=== PATIENT | male | born 1960 | race Caucasian/White ===

== ENCOUNTER 2018-08-04 17:37 | Emergency (ER) | payer MEDICAID ==
[2018-08-04] MEDS ORDERED: Ondansetron 4 MG/2 ML SDV IV ONE (17:44)
[2018-08-04] MEDS ORDERED: MVI, Adult with Vitamin K 10 ML, Thiamine 100 MG, Folic Acid 1 MG in Lactated Ringers 1... IV ONE ×4 (17:44)
[2018-08-04] MEDS ORDERED: LORazepam 2 MG/ML Syringe IVPUSH ONE (17:44)
[2018-08-04] MEDS ORDERED: Pantoprazole 40 MG Vial IVPUSH ONE (17:44)
[2018-08-04] MEDS ORDERED: Pantoprazole 40 MG in Sodium Chloride 0.9% 100 ML IV SCH (17:45)
[2018-08-04] MEDS ORDERED: Sodium Chloride 0.9% 10 ML Syringe FLUSH PRN (17:45)
[2018-08-04] MEDS ORDERED: Octreotide 100 MCG/ML SDV IVPUSH ONE (17:45)
[2018-08-04] MEDS ORDERED: Octreotide 500 MCG in Sodium Chloride 0.9% 250 ML IV SCH (17:45)
[2018-08-04 17:46] VITALS: BP 106/80
[2018-08-04 18:13] LABS: ANION GAP 17.4; CHLORIDE,CL 106 mmol/L (101-111); SODIUM,NA 135 mmol/L (135-145)
[2018-08-04] MEDS: Sodium Chloride 0.9% 10 ML Syringe FLUSH PRN ×3 (18:13→18:30)
[2018-08-04] MEDS ORDERED: Lactated Ringers 1,000 ML IV ONE (18:43)
--- NOTE | 2018-08-04 18:44 | EDM.PDOC ---
Scribed by Salud Boswell 08/04/18 [id number] for Glne Casillas MD ED HPI GENERAL MEDICAL PROBLEM - General Chief Complaint: Abdominal Pain Stated Complaint: Abdominal pain Time Seen by Provider: 08/04/18 17:37 Source of Information: Reports: Patient, RN, RN Notes Reviewed History Limitations: Reports: No Limitations - History of Present Illness INITIAL COMMENTS - FREE TEXT/NARRATIVE: Patient presents to ER with complaint of upper and lower GI bleed. He relapsed to drinking half a gallon of vodka a day after 7 months of sobriety. He states he has been drinking for 2.5 days. Last drank earlier today. He states that he had a dark bloody smelling bowel movement this morning and began vomiting blood one hour ago. He states he feels lightheaded. He denies chest pain. He has gastric pain that he rated as 8/10. Onset: Today Duration: Getting Worse Location: Reports: Abdomen Quality: Reports: Ache Severity: Severe Abdomen Pain Score (Numeric/FACES): 8 - Related Data Allergies Allergy/AdvReac Type Severity Reaction Status Date / Time bee pollen Allergy Anaphylactic Verified 08/04/18 17:46 Shock Home Meds: Home Meds Atenolol 25 mg PO DAILY 12/30/16 [History] Pantoprazole [ProTONIX] 40 mg BID 12/30/16 [History] busPIRone [Buspar] 7.5 mg BID 12/30/16 [History] Acetaminophen/oxyCODONE [Percocet 325-5 MG] 1 tab PO Q6H PRN #30 tablet [Rx] LORazepam [Ativan] 1 mg PO Q6H PRN #30 tablet 01/03/17 [Rx] Past Medical History Cardiovascular History: Reports: Hypertension Gastrointestinal History: Reports: Pancreatitis Other Psychiatric History: alcohol Oncologic (Cancer) History: Reports: Other (See Below) (stomach) - Past Surgical History GI Surgical History: Reports: Appendectomy, Other (See Below) (stomach surgery for cancer, splenectomy) Social & Family History - Family History Family Medical History: Noncontributory - Tobacco Use Smoking Status *Q: Current Some Day Smoker - Alcohol Use Alcohol Use History: Yes Date of Last Drink: 08/04/18 (1/2 gal. Vodka daily x3 days) Alcohol Use Frequency: Binges - Living Situation & Occupation Living situation: Reports: Alone Occupation: Unemployed ED ROS GENERAL - Review of Systems Review Of Systems: ROS reveals no pertinent complaints other than HPI. ED EXAM, GI/ABD - Physical Exam Exam: See Below Exam Limited By: Intoxication General Appearance: Alert, No Apparent Distress, Anxious Eyes: Bilateral: Normal Appearance Ears: Normal External Exam Nose: Normal Inspection, Normal Mucosa, No Blood Throat/Mouth: Normal Voice, No Airway Compromise Head: Atraumatic, Normocephalic Neck: Normal Inspection, Supple, Non-Tender, Full Range of Motion Respiratory/Chest: No Respiratory Distress, Lungs Clear, Normal Breath Sounds, No Accessory Muscle Use, Chest Non-Tender Cardiovascular: Regular Rate, Rhythm, No Edema, Tachycardia GI/Abdominal Exam: Normal Bowel Sounds, Soft, No Distention, Tender (Tender at epigastric region only.), Other (Grossly bloody emesis.). No: Guarding, Rigid, Rebound Back Exam: Normal Inspection, Full Range of Motion Extremities: Normal Inspection, Normal Range of Motion, Non-Tender, Normal Capillary Refill, No Pedal Edema Neurological: Alert, Oriented, CN II-XII Intact, Normal Cognition, No Motor/ Sensory Deficits Psychiatric: Anxious Skin Exam: Warm, Dry, Intact, Pallor. No: Ecchymosis, Petechiae EKG INTERPRETATION EKG Date: 08/04/18 Time: 17:37 Rhythm: Other (sinus tachycardia) Rate (Beats/Min): 124 [place]: Normal P-Wave: Present QRS: Other (atrial premature complex) ST-T: Other (borderline T abnormalities, inferior lead) QT: Normal Comparison: NA - No Prior EKG Course - Vital Signs Last Recorded V/S: Last Vital Signs Temp 35.5 C 08/04/18 17:38 Pulse 122 H 08/04/18 17:38 Resp 20 08/04/18 17:38 BP 106/80 08/04/18 17:38 Pulse Ox 99 08/04/18 17:38 - Orders/Labs/Meds Orders: Active Orders 24 hr Category Date Time Status EKG 12 Lead [EKG Documentation Completion] [RC] STAT Care 08/04/18 17:40 Active Peripheral IV Care [RC] . DIRECTED Care 08/04/18 17:41 Active Peripheral IV Care [RC] . DIRECTED Care 08/04/18 17:45 Active DRUG SCREEN URINE BIORAD [URCHEM] Stat Lab 08/04/18 17:41 Ordered UA RFX PARMJIT AND CULT IF INDIC [URIN] Stat Lab 08/04/18 17:41 Ordered Lactated Ringers [Ringers, Lactated] 1,000 ml Med 08/04/18 18:43 Ordered IV .BOLUS Octreotide [SandoSTATIN] 500 mcg Med 08/04/18 17:45 Active Sodium Chloride 0.9% [Normal Saline] 250 ml IV ASDIRECTED Pantoprazole [ProTONIX IV] 40 mg Med 08/04/18 17:45 Active Sodium Chloride 0.9% [Normal Saline] 100 ml IV .CONTINUOS Sodium Chloride 0.9% [Saline Flush] Med 08/04/18 17:40 Active 10 ml FLUSH ASDIRECTED PRN Sodium Chloride 0.9% [Saline Flush] Med 08/04/18 17:45 Active 10 ml FLUSH ASDIRECTED PRN Peripheral IV Insertion Adult [OM.PC] Stat Oth 08/04/18 17:40 Ordered Peripheral IV Insertion Adult [OM.PC] Stat Oth 08/04/18 17:45 Ordered Medication Orders Octreotide Acetate 500 mcg/ (Sodium Chloride) 255 mls @ 12.5 mls/hr IV ASDIRECTED FRIDA Last Admin: 08/04/18 18:29 Dose: 12.5 mls/hr Pantoprazole Sodium 40 mg/ (Sodium Chloride) 100 mls @ 20 mls/hr IV .CONTINUOS FRIDA Last Admin: 08/04/18 18:25 Dose: 20 mls/hr Lactated Ringer's (Ringers, Lactated) 1,000 mls @ 999 mls/hr IV .BOLUS ONE Stop: 08/04/18 19:43 Sodium Chloride (Saline Flush) 10 ml FLUSH ASDIRECTED PRN PRN Reason: Keep Vein Open Last Admin: 08/04/18 18:30 Dose: 10 ml Admin: 08/04/18 18:19 Dose: 10 ml Admin: 08/04/18 18:13 Dose: 10 ml Sodium Chloride (Saline Flush) 10 ml FLUSH ASDIRECTED PRN PRN Reason: Keep Vein Open Labs: Laboratory Tests 08/04/18 08/04/18 08/04/18 Range/Units 17:42 17:44 17:44 WBC 19.8 H (5.0-10.0) 10^3/uL RBC 2.63 L (4.6-6.2) 10^6/uL Hgb 9.2 L (14.0-18.0) g/dL Hct 27.5 L (40.0-54.0) % MCV 104.6 H (80-100) fL MCH 35.0 H (27.0-34.0) pg MCHC 33.5 (33.0-35.0) g/dL Plt Count 444 (150-450) 10^3/uL Neut % (Auto) 79.0 H (42.2-75.2) % Lymph % (Auto) 16.7 L (20.5-50.1) % [place] % (Auto) 3.8 (2-8) % Eos % (Auto) 0.1 L (1.0-3.0) % Baso % (Auto) 0.4 (0.0-1.0) % PT 9.5 (9.0-12.0) SEC INR 1.0 (0.9-1.2) APTT 20.5 L (22.0-34.0) SEC Sodium (135-145) mmol/L Potassium (3.6-5.0) mmol/L Chloride (101-111) mmol/L Carbon Dioxide (21.0-31.0) mmol/L Anion Gap BUN (7-18) mg/dL Creatinine (0.6-1.3) mg/dL Est Cr Clr Drug Dosing mL/min Estimated GFR (MDRD) BUN/Creatinine Ratio Glucose (74-105) mg/dL POC Glucose 145 H (70-105) mg/dl Calcium (8.4-10.2) mg/dl Total Bilirubin (0.2-1.0) mg/dL AST (10-42) IU/L ALT (10-60) IU/L Alkaline Phosphatase (42-121) IU/L Troponin I (0.00-0.08) ng/mL Total Protein (6.7-8.2) g/dl Albumin (3.2-5.5) g/dl Globulin Albumin/Globulin Ratio Amylase (28-100) U/L Lipase (22-51) U/L Ethyl Alcohol mg/dL 08/04/18 Range/Units 17:44 WBC (5.0-10.0) 10^3/uL RBC (4.6-6.2) 10^6/uL Hgb (14.0-18.0) g/dL Hct (40.0-54.0) % MCV (80-100) fL MCH (27.0-34.0) pg MCHC (33.0-35.0) g/dL Plt Count (150-450) 10^3/uL Neut % (Auto) (42.2-75.2) % Lymph % (Auto) (20.5-50.1) % [place] % (Auto) (2-8) % Eos % (Auto) (1.0-3.0) % Baso % (Auto) (0.0-1.0) % PT (9.0-12.0) SEC INR (0.9-1.2) APTT (22.0-34.0) SEC Sodium 135 (135-145) mmol/L Potassium 3.4 L (3.6-5.0) mmol/L Chloride 106 (101-111) mmol/L Carbon Dioxide 15.0 L (21.0-31.0) mmol/L Anion Gap 17.4 BUN 32 H (7-18) mg/dL Creatinine 0.9 (0.6-1.3) mg/dL Est Cr Clr Drug Dosing 100.59 mL/min Estimated GFR (MDRD) > 60 BUN/Creatinine Ratio 35.55 Glucose 144 H (74-105) mg/dL POC Glucose (70-105) mg/dl Calcium 8.2 L (8.4-10.2) mg/dl Total Bilirubin 0.5 (0.2-1.0) mg/dL AST 19 (10-42) IU/L ALT 15 (10-60) IU/L Alkaline Phosphatase 52 (42-121) IU/L Troponin I 0.00 (0.00-0.08) ng/mL Total Protein 6.2 L (6.7-8.2) g/dl Albumin 3.5 (3.2-5.5) g/dl Globulin 2.7 Albumin/Globulin Ratio 1.30 Amylase 36 (28-100) U/L Lipase 21 L (22-51) U/L Ethyl Alcohol 127 mg/dL Meds: Medications Generic Name Dose Route Start Last Admin Trade Name Freq PRN Reason Stop Dose Admin Octreotide Acetate 500 mcg/ 255 mls @ 12.5 mls/hr 08/04/18 17:45 08/04/18 18: 29 Sodium Chloride IV 12.5 mls/hr ASDIRECTED FRIDA Administration Pantoprazole Sodium 40 mg/ 100 mls @ 20 mls/hr 08/04/18 17:45 08/04/18 18:25 Sodium Chloride IV 20 mls/hr .CONTINUOS FRIDA Administration Lactated Ringer's 1,000 mls @ 999 mls/hr 08/04/18 18:43 Ringers, Lactated IV 08/04/18 19:43 .BOLUS ONE Sodium Chloride 10 ml 08/04/18 17:40 08/04/18 18:30 Saline Flush FLUSH 10 ml ASDIRECTED PRN Administration Keep Vein Open Sodium Chloride 10 ml 08/04/18 17:45 Saline Flush FLUSH ASDIRECTED PRN Keep Vein Open Discontinued Medications Generic Name Dose Route Start Last Admin Trade Name Jamshidq PRN Reason Stop Dose Admin Multivitamins/Minerals 10 ml/ 1,011.2 mls @ 999 mls/hr 08/04/18 17:44 18:12 Thiamine HCl 100 mg/ Folic IV 08/04/18 18:44 999 mls/hr Acid 1 mg/ Lactated Ringer's .BOLUS ONE Administration Lorazepam 2 mg 08/04/18 17:44 08/04/18 18:07 Ativan IVPUSH 08/04/18 17:45 2 mg ONETIME ONE Administration Octreotide Acetate 50 mcg 08/04/18 17:45 08/04/18 18:29 Sandostatin IVPUSH 08/04/18 17:46 50 mcg ONETIME ONE Administration Ondansetron HCl 4 mg 08/04/18 17:44 08/04/18 18:07 Zofran IV 08/04/18 17:45 4 mg ONETIME ONE Administration Pantoprazole Sodium 80 mg 08/04/18 17:44 08/04/18 18:12 Protonix Iv IVPUSH 08/04/18 17:45 80 mg .BOLUS ONE Administration Departure - Departure Time of Disposition: 18:41 Disposition: DC/Tfer to Acute Hospital 02 Condition: Critical Clinical Impression: Upper GI bleed, Alcohol abuse Alcohol intoxication Qualifiers: Complication of substance-induced condition: with unspecified complication Qualified Code(s): F10.929 - Alcohol use, unspecified with intoxication, unspecified - Discharge Information *PRESCRIPTION DRUG MONITORING PROGRAM REVIEWED*: Not Applicable *COPY OF PRESCRIPTION DRUG MONITORING REPORT IN PATIENT DEON: Not Applicable Referrals: PCP,None [Primary Care Provider] - Forms: ED Department Discharge, Interfacility Transfer EMTALA - My Orders Last 24 Hours: My Active Orders 08/04/18 17:40 EKG 12 Lead [EKG Documentation Completion] [RC] STAT Sodium Chloride 0.9% [Saline Flush] 10 ml FLUSH ASDIRECTED PRN Peripheral IV Insertion Adult [OM.PC] Stat 08/04/18 17:41 Peripheral IV Care [RC] . DIRECTED DRUG SCREEN URINE BIORAD [URCHEM] Stat UA RFX PARMJIT AND CULT IF INDIC [URIN] Stat 08/04/18 17:45 Peripheral IV Care [RC] . DIRECTED Octreotide [SandoSTATIN] 500 mcg Sodium Chloride 0.9% [Normal Saline] 250 ml IV ASDIRECTED Pantoprazole [ProTONIX IV] 40 mg Sodium Chloride 0.9% [Normal Saline] 100 ml IV .CONTINUOS Sodium Chloride 0.9% [Saline Flush] 10 ml FLUSH ASDIRECTED PRN Peripheral IV Insertion Adult [OM.PC] Stat 08/04/18 18:43 Lactated Ringers [Ringers, Lactated] 1,000 ml IV .BOLUS - Assessment/Plan Last 24 Hours: My Active Orders 08/04/18 17:40 EKG 12 Lead [EKG Documentation Completion] [RC] STAT Sodium Chloride 0.9% [Saline Flush] 10 ml FLUSH ASDIRECTED PRN Peripheral IV Insertion Adult [OM.PC] Stat 08/04/18 17:41 Peripheral IV Care [RC] . DIRECTED DRUG SCREEN URINE BIORAD [URCHEM] Stat UA RFX PARMJIT AND CULT IF INDIC [URIN] Stat 08/04/18 17:45 Peripheral IV Care [RC] . DIRECTED Octreotide [SandoSTATIN] 500 mcg Sodium Chloride 0.9% [Normal Saline] 250 ml IV ASDIRECTED Pantoprazole [ProTONIX IV] 40 mg Sodium Chloride 0.9% [Normal Saline] 100 ml IV .CONTINUOS Sodium Chloride 0.9% [Saline Flush] 10 ml FLUSH ASDIRECTED PRN Peripheral IV Insertion Adult [OM.PC] Stat 08/04/18 18:43 Lactated Ringers [Ringers, Lactated] 1,000 ml IV .BOLUS I have read and agree with the documentation that has been completed regarding this visit. By signing this record, I attest that the documentation was completed in my physical presence and is an accurate record of the encounter.
== END 2018-08-04 19:13 ==
LOC: DL.ED 17:37
DX: K92.2 Gastrointestinal hemorrhage, unspecified (principal); F10.129 Alcohol abuse with intoxication, unspecified; Y90.6 Blood alcohol level of 120-199 mg/100 ml; I10 Essential (primary) hypertension; F17.210 Nicotine dependence, cigarettes, uncomplicated; Z91.030 Bee allergy status; Z79.899 Other long term (current) drug therapy
CPT/HCPCS: 36415; 80053; 82150; 82962; 83690; 84484; 85025; 85610; 85730; 93005; 96365; 96368; 96375; 96376; 99284; C9113; G0480; J2060; J2354; J2405; J3411; J7050; J7120; J3490